=== PATIENT | male | born 1940 | race Caucasian/White ===

== ENCOUNTER 2023-08-28 11:29 | Observation (INO) | payer OTHER ==
[2023-08-28] MEDS ORDERED: NA CHLORIDE 0.9% 1,000 ML ONE (12:33)
[2023-08-28 12:47] LABS: Absolute Lymphocytes (CBC) 0.8 K/uL (0.7-4.9); Hematocrit 40.7 % (39.6-49.0); Lymphocytes % 8.7 % (15.3-44.8); MCV 88.7 fL (80-100); MPV 7.7 fL (7.6-11.3); Platelets 286 thou/uL (152-406); RBC Red Blood Cell Count 4.59 M/uL (4.33-5.43)
--- NOTE | 2023-08-28 12:50 | RAD REPORT ---
EXAM DESCRIPTION: [facility]28/2023 12:41 pm CLINICAL HISTORY: COUGH COMPARISON: Chest Pa And Lat (2 Views) dated 04/16/2022; CHEST PA AND LAT 2 VIEW dated 08/07/2015; CH EST PA AND LAT 2 VIEW dated 10/20/2012; CHEST PA AND LAT 2 VIEW dated 10/22/2010 TECHNIQUE: Portable AP view of the chest. FINDINGS: The lungs are clear apart from left costophrenic angle blunting which may relate to pleura l thickening or trace effusion. No pneumothorax or sizable effusion. The cardiomediastinal contours are unremarkable. IMPRESSION: Left costophrenic angle blunting as above. No other acute cardiopulmonary process.
[2023-08-28 13:04] LABS: Albumin 3.5 g/dL (3.4-5.0); Bilirubin Total 0.7 mg/dL (0.2-1.0); Potassium 4.3 mEq/L (3.5-5.1); Protein, Total 7.2 g/dL (6.4-8.2)
[2023-08-28 13:19] LABS: SARS-CoV-2 Antigen Rapid Res Negative (Negative)
[2023-08-28 13:42] LABS: Specific Gravity 1.028 (1.005-1.030); Urine Bacteria <20 /HPF (<20); Urine Bilirubin NEGATIVE (Negative); Urine Blood 1+ (Negative); Urine Clarity Turbid (Clear); Urine Color Yellow (Yellow); Urine Glucose NEGATIVE (Negative); Urine Mucus Slight /HPF (None Seen); Urine Protein 2+ (Negative); Urine Urobilinogen Normal (Normal); Urine pH 5.5 (5.0-7.0)
--- NOTE | 2023-08-28 13:57 | EDPHYS ---
Physician Documentation [facility] Name: Niraj Mccarthy Age: 82 yrs Sex: Male : 1940 Arrival Date: 08/28/2023 Time: 11:29 Bed 7 Private MD: Jorge Medeiros C ED Physician Da Luo HPI: 08/28 11:43 This 82 yrs old Male presents to ER via Wheelchair with complaints of Urinary ec2 Problem, Cough, confusion. 11:43 Patient arrives today for evaluation of generalized weakness as well as decrease in ec2 urinary frequency and occasional cough. Patient has been having urinary complaints approximately 1 week, has been having issues with initiating urination and feels like he is not completely voiding. Patient reports no fevers or chills, nausea or vomiting. Does report an occasional cough. Denies any difficulty breathing, denies any abdominal pain. Son is present with him who reports some increased confusion, states that he has been generally weaker and lives alone. No reported falls or injuries.. Historical: - Allergies: 11:35 No Known Allergies; ll1 - PMHx: 11:35 Hypertensive disorder; Hypercholesterolemia; ll1 - PSHx: 11:35 None; ll1 - Immunization history:: Adult Immunizations up to date. - Social history:: Smoking status: Patient denies any tobacco usage or history of. ROS: 11:44 Constitutional: as per hpi ec2 Exam: 11:44 Constitutional: GEN: NAD Head: atraumatic Eyes: EOMI Ears: External ears are ec2 normal. CV: regular rate LUNGS: no respiratory distress ABD: non-distended, soft, nontender, not guarding, not rigid SKIN: no evidence of rashes MSK: no evidence of trauma NEURO: moves all extremities equally Vital Signs: 11:39 BP 152 / 68; Pulse 81; Resp 18; Temp 98.4; Pulse Ox 94% ; Pain 0/10; ll1 12:41 BP 146 / 52; Pulse 66; Resp 16 S; Pulse Ox 99% on R/A; kc6 13:48 BP 154 / 67; Pulse 64; Resp 17 S; Pulse Ox 97% on R/A; kc6 15:30 BP 166 / 68; Pulse 61; Resp 16; Pulse Ox 96% on R/A; mb9 16:13 BP 163 / 62; Pulse 69; Resp 17 S; Pulse Ox 100% on R/A; kc6 11:39 Pain Scale: Adult ll1 MDM: 11:35 Patient medically screened. ec2 11:44 Data reviewed: vital signs. ED course: Patient arrives today due to concern for urinary ec2 problems along with cough and cold symptoms and generalized weakness. Examination remarkable for well-appearing nontoxic individual is otherwise in no acute distress. Will obtain lab work, urine studies, chest x-ray. Currently considering process such as urinary tract infection, dehydration, pneumonia, electrolyte disturbances, anemia.. 12:37 ED course: Patient with no urine present on bladder scan, will continue with giving the ec2 patient crystalloid and wait for urine specimen. Will defer catheterization given lack of urine on scan.. 12:50 ED course: CBC is reassuring.. ec2 13:13 ED course: Metabolic profile is reassuring.. ec2 13:51 ED course: Urine is noninfectious appearing with no leukoesterase or nitrites present. ec2 Negative flu and COVID testing. . 13:56 ED course: Given the patient's generalized weakness and reported confusion as well as ec2 his living status is living alone, I feel I would best to keep him in the hospital for further workup of his confusion and weakness. I discussed case with his primary care doctor Dr. Medeiros who agrees to except patient for admission.. 15:33 ED course: CT scan of the head shows hyperdense lesion near the distal right MCA, will ec2 benefit from MRI. Will admit to the hospital for further workup. Patient updated regarding plan of care. Discussed case with hospitalist, pending admission. . 08/28 11:43 Order name: CBC with Diff; Complete Time: 12:50 ec2 08/28 11:43 Order name: CMP; Complete Time: 13:13 ec2 08/28 11:43 Order name: UAM; Complete Time: 13:51 ec2 08/28 11:44 Order name: SARS RAPID; Complete Time: 13:51 ec2 08/28 11:44 Order name: Influenza Screen (a \T\ B); Complete Time: 13:51 ec2 08/28 11:43 Order name: CXR XRAY; Complete Time: 12:52 ec2 08/28 13:57 Order name: CT Head Brain wo Cont; Complete Time: 15:33 ec2 08/28 15:47 Order name: CONS Physician Consult EDMS 08/28 11:43 Order name: Bladder Scanner; Complete Time: 12:38 ec2 Administered Medications: 12:41 Drug: NS 0.9% IV 1000 ml IV at 1 bolus Per protocol; 1000 mL bolus Route: IV; Rate: 1 kc6 bolus; Site: right antecubital; 16:14 Follow up: Response: No adverse reaction; IV Status: Completed infusion; IV Intake: kc6 1000ml Disposition: 15:36 Chart complete. ec2 Disposition Summary: 08/28/23 15:34 Hospitalization Ordered Notes: Hospitalization Status: Inpatient Admission(08/28/23 15:34) ec2 Provider: Jorge Medeiros(08/28/23 15:34) ec2 Location: Telemetry/MedSurg (Inpatient)(08/28/23 15:34) ec2 Condition: Stable(08/28/23 15:34) ec2 Problem: an acute exacerbation(08/28/23 15:34) ec2 Symptoms: are unchanged(08/28/23 15:34) ec2 Bed/Room Type: Standard(08/28/23 15:34) ec2 Room Assignment: [facility](08/28/23 16:04) em1 Diagnosis - Altered mental status, unspecified(08/28/23 15:34) ec2 - Weakness(08/28/23 15:34) ec2 Forms: - Medication Reconciliation Form ec2 - SBAR form ec2 - Leadership Thank You Letter ec2 Signatures: Dispatcher [employer] Eran Zaman em1 Santo Díaz RN RN ll1 Yesenia Liriano RN RN kc6 Da Luo MD MD ec2 Corrections: (The following items were deleted from the chart) 11:44 11:43 Patient arrives today for evaluation of generalized weakness as well as decrease ec2 in urinary frequency and occasional cough.. ec2 14:00 13:57 Inpatient Admission ec2 ec2 14:00 13:57 Jorge Medeiros ec2 ec2 14:00 13:57 Telemetry/MedSurg (Inpatient) ec2 ec2 14:00 13:57 Stable ec2 ec2 14:00 13:57 an acute exacerbation ec2 ec2 14:00 13:57 are unchanged ec2 ec2 14:00 13:57 Standard ec2 ec2 14:00 13:57 ec2 ec2 14:00 13:57 Weakness ec2 ec2 14:00 13:57 Altered mental status, unspecified ec2 ec2 16:04 15:34 ec2 em1 16:12 15:33 ED course: CT scan of the head shows hyperdense lesion near the distal right MCA, ec2 will benefit from MRI. Will admit to the hospital for further workup. Discussed case with hospitalist, pending admission. . ec2
--- NOTE | 2023-08-28 13:57 | ER ---
Nurse's Notes [facility] Name: Niraj Mccarthy Age: 82 yrs Sex: Male : 1940 Arrival Date: 08/28/2023 Time: 11:29 Bed 7 Private MD: Jorge Medeiros C Diagnosis: Altered mental status, unspecified;Weakness Presentation: 08/28 11:36 Chief complaint: Patient states: Unable to pass urine for well since last week. Some ll1 confusion noted by son this week. Cough also, no known fever. Coronavirus screen: Vaccine status: Patient reports receiving the 2nd dose of the covid vaccine. Client denies travel out of the [place] in the last 14 days. cough unrelated to allergies, fatigue, Client presents with at least one sign or symptom that may indicate coronavirus-19. Standard/surgical mask placed on the client. Ebola Screen: Patient denies travel to an Ebola-affected area in the 21 days before illness onset. Initial Sepsis Screen: Does the patient meet any 2 criteria? No. Patient's initial sepsis screen is negative. Does the patient have a suspected source of infection? Yes: Productive cough/pneumonia. Risk Assessment: Do you want to hurt yourself or someone else? Patient reports no desire to harm self or others. Onset of symptoms was August 26, 2023. 11:36 Method Of Arrival: Wheelchair ll1 11:36 Acuity: VANDANA 3 ll1 Triage Assessment: 11:36 General: Appears uncomfortable, Behavior is calm, cooperative, appropriate for age. ll1 Pain: Denies pain. Neuro: Reports Son notices confusion. Respiratory: Reports cough that is. : Reports inability to void, urinary frequency. Historical: - Allergies: 11:35 No Known Allergies; ll1 - PMHx: 11:35 Hypertensive disorder; Hypercholesterolemia; ll1 - PSHx: 11:35 None; ll1 - Immunization history:: Adult Immunizations up to date. - Social history:: Smoking status: Patient denies any tobacco usage or history of. Screenin:39 [facility] ED Fall Risk Assessment (Adult) History of falling in the last 3 months, kc6 including since admission No falls in past 3 months (0 pts) Confusion or Disorientation No (0 pts) Intoxicated or Sedated No (0 pts) Impaired Gait Yes (1 pt) Mobility Assist Device Used Yes (1 pt) Altered Elimination No (0 pt) Score/Fall Risk Level 0 - 2 = Low Risk. Abuse screen: Denies threats or abuse. Denies injuries from another. Nutritional screening: No deficits noted. Tuberculosis screening: No symptoms or risk factors identified. Assessment: 12:39 General: Appears in no apparent distress. comfortable, Behavior is calm, cooperative, kc6 appropriate for age. Pain: Denies pain. Neuro: Level of Consciousness is awake, alert, obeys commands, Oriented to person, place, time, situation, Appropriate for age. Cardiovascular: Capillary refill < 3 seconds. Respiratory: Airway is patent Trachea midline Respiratory effort is even, unlabored, Respiratory pattern is regular, symmetrical. GI: No signs and/or symptoms were reported involving the gastrointestinal system. : Last void was August 28, 2023. pt appears to be soiled in brief and jeans upon assessment. pt states he is able to feed when he needs to void and will provide a sample. Dr. Luo notified Reports incontinence, inability to void. EENT: No signs and/or symptoms were reported regarding the EENT system. Derm: No signs and/or symptoms reported regarding the dermatologic system. Skin is intact, is healthy with good turgor, Skin is pink, warm \T\ dry. Musculoskeletal: No signs and/or symptoms reported regarding the musculoskeletal system. Circulation, motion, and sensation intact. Capillary refill < 3 seconds, Range of motion: intact in all extremities. 13:39 Reassessment: Patient appears in no apparent distress at this time. No changes from kc6 previously documented assessment. Patient and/or family updated on plan of care and expected duration. Pain level reassessed. Patient is alert, oriented x 3, equal unlabored respirations, skin warm/dry/pink. 14:39 Reassessment: Patient appears in no apparent distress at this time. No changes from kc6 previously documented assessment. Patient and/or family updated on plan of care and expected duration. Pain level reassessed. Patient is alert, oriented x 3, equal unlabored respirations, skin warm/dry/pink. 15:39 Reassessment: Patient appears in no apparent distress at this time. No changes from kc6 previously documented assessment. Patient and/or family updated on plan of care and expected duration. Pain level reassessed. Patient is alert, oriented x 3, equal unlabored respirations, skin warm/dry/pink. 16:13 Reassessment: attempted to call report to 2nd floor. nurse not assigned at this time. kc6 Vital Signs: 11:39 BP 152 / 68; Pulse 81; Resp 18; Temp 98.4; Pulse Ox 94% ; Pain 0/10; ll1 12:41 BP 146 / 52; Pulse 66; Resp 16 S; Pulse Ox 99% on R/A; kc6 13:48 BP 154 / 67; Pulse 64; Resp 17 S; Pulse Ox 97% on R/A; kc6 15:30 BP 166 / 68; Pulse 61; Resp 16; Pulse Ox 96% on R/A; mb9 16:13 BP 163 / 62; Pulse 69; Resp 17 S; Pulse Ox 100% on R/A; kc6 11:39 Pain Scale: Adult ll1 ED Course: 11:33 Patient arrived in ED. rg4 11:33 Jorge Medeiros MD is Private Physician. rg4 11:33 Da Luo MD is Attending Physician. ec2 11:38 Triage completed. ll1 11:38 Arm band placed on. ll1 12:13 Jannet Spears, RN is Primary Nurse. mb9 12:14 Yesenia Liriano, RN is Primary Nurse. kc6 12:38 Patient has correct armband on for positive identification. Bed in low position. Call kc6 light in reach. Side rails up X2. Adult w/ patient. Client placed on continuous cardiac and pulse oximetry monitoring. NIBP monitoring applied. 12:38 SARS RAPID Sent. kc6 12:38 Influenza Screen (a \T\ B) Sent. kc6 12:38 CMP Sent. kc6 12:38 CBC with Diff Sent. kc6 12:38 Bladder scan completed. 0 mL. Inserted saline lock: 20 gauge in right antecubital area, kc6 using aseptic technique. Blood collected. Patient maintains SpO2 saturation greater than 95% on room air. 12:42 CXR XRAY In Process Unspecified. EDMS 13:28 UAM Sent. kc6 13:56 Jorge Medeiros MD is Hospitalizing Provider. ec2 14:12 CT Head Brain wo Cont In Process Unspecified. EDMS 15:34 Jorge Medeiros MD is Hospitalizing Provider. ec2 Administered Medications: 12:41 Drug: NS 0.9% IV 1000 ml IV at 1 bolus Per protocol; 1000 mL bolus Route: IV; Rate: 1 kc6 bolus; Site: right antecubital; 16:14 Follow up: Response: No adverse reaction; IV Status: Completed infusion; IV Intake: kc6 1000ml Intake: 16:14 IV: 1000ml; Total: 1000ml. kc6 Outcome: 13:57 Decision to Hospitalize by Provider. ec2 15:34 Decision to Hospitalize by Provider. ec2 17:20 Patient left the ED. mb9 Signatures: Dispatcher [employer] Angela Staley4 Santo Díaz RN RN ll1 Yesenia Liriano RN RN kc6 Jannet Spears RN RN mb9 Da Luo MD MD ec2 Corrections: (The following items were deleted from the chart) 11:41 11:36 Chief complaint: Patient states: Unable to pass urine for a couple days. Some ll1 confusion noted. Cough also, no known fever ll1
--- NOTE | 2023-08-28 15:27 | RAD REPORT ---
EXAM DESCRIPTION: CT - Head Brain Wo Cont - 08/28/2023 2:11 pm CLINICAL HISTORY: CONFUSED COMPARISON: No comparisons TECHNIQUE: Noncontrast head CT images ad were obtained without IV contrast. Multiplanar reformats we re generated and reviewed. All CT scans are performed using dose optimization technique as appropriate and may include automated exposure control or mA/KV adjustment according to patient size. FINDINGS: No intracranial hemorrhage, mass, or edema. Midline structures are unremarkable. Moderate diffuse parenchymal volume loss, with somewhat disproportionate prominence of the ventricula r system relative to the sulci. Myrick-white matter differentiation is preserved, without evidence of acute infarct. No abnormal extra- axial fluid collections. Patchy periventricular and deep white matter hypoattenuation, nonspecific, but suggestive of chronic small vessel ischemic changes. Mastoid air cells and visualized portions of the paranasal sinuses are clear. No acute bony findings. IMPRESSION: Hyperdense vessel sign along the distal right MCA. The there is concern for acute ischem ia, additional evaluation by MRI would provide improved sensitivity. Diffuse parenchymal volume loss, with relatively disproportionate prominence of the ventricles relati ve to the sulci. Findings may relate to central predominant volume loss versus normal pressure hydroc ephalus. Please correlate clinically. Nonspecific deep white matter hypodensities, suggestive of chronic small vessel ischemic changes. The findings were communicated to Da Luo on 08/28/2023 at 15:23 hours.
[2023-08-28] MEDS ORDERED: ALBUTEROL 2.5 MG/3 ML NEB SOL NEB PRN (15:38)
[2023-08-28] MEDS ORDERED: ACETAMINOPHEN 325 MG TABLET PO PRN (15:38)
[2023-08-28] MEDS ORDERED: INFLUENZA VACCINE (for 6+ mo) 0.5 ML DOSE IMVAC ONE (18:00)
[2023-08-28 18:05] VITALS: BMI 23.6
[2023-08-28] MEDS ORDERED: AMLODIPINE 5 MG TAB PO ONE (18:55)
[2023-08-28] MEDS ORDERED: ATORVASTATIN 40 MG TAB PO SCH (21:00)
[2023-08-29 03:14] VITALS: O2SAT 94
--- NOTE | 2023-08-29 07:14 | HP ---
Date of Admission: 08/28/2023 Chief Complaint: Weakness. History Of Present Illness: This is an 82-year-old male patient, who lives at home by himself. Says that last night, he was in the bed and he felt like he was feeling a little thirsty and decided to get up to go to the kitchen to get some water, but as he was trying to get out of the bed, he felt very weak, and there was no focal weakness but just a generalized weakness, so he decided not to go to the kitchen, and he laid back down in the bed again and says that today, when his son came to check on him, he found out that the patient just did not look right, and the patient's son brought him to emergency room. The patient reports that sometime during day today, he decided that he was going to get out of the bed and he did that and reports that he was holding onto the moreno and he sat down in his recliner and that is where he was when his son came to his house. He denies any headache, nausea, vomiting, constipation, diarrhea. No fever. No chills. No head injury or fall. After patient was evaluated in the ER, he was admitted to the hospital. Allergies: NO KNOWN ALLERGIES. Medications: Aspirin 81 mg daily, atorvastatin 40 mg daily, fluticasone nasal spray one spray each nostril 2 times a day as needed, hydrochlorothiazide 12.5 mg daily, losartan 50 mg two times a day, tamsulosin 0.4 mg daily. Review of Systems: Constitutional: As mentioned above. All other systems reviewed and are negative. Past Medical History: Significant for hypertension; hyperlipidemia; allergic rhinitis; left-sided carotid artery stenosis, for which the patient has elected not to undergo any intervention; diverticulosis; benign prostatic hypertrophy; and history of leg edema. Past Surgical History: Significant for carotid artery stent placement. Family History: Father , had COPD, congestive heart failure, and enlarged prostate. Mother , details unknown. Social History: Negative for smoking and alcohol use. Physical Examination: Vital Signs: Height 69 inches, weight 160 pounds, temperature 98.4, pulse 81, respiratory rate 18, blood pressure 152/68, oxygen saturation 94% on room air. General: Awake, alert, oriented, not in distress. HEENT: Head atraumatic, normocephalic. Conjunctivae nonerythematous. Sclerae white. Mouth, no thrush or edema noted. Ears/Nose, no mass, lesion, discharge noted. Neck: Supple. No JVD, lymph nodes, bruit, thyromegaly noted. Lungs: Bilateral good equal air entry. Clear to auscultation. No rhonchi. No rales. Heart: Normal heart sounds, no murmur or gallop. Abdomen: Soft, bowel sounds normal. No guarding, rigidity, tenderness, mass, hepatosplenomegaly, distention, or bruit noted. Extremities: No leg edema. No calf tenderness. Skin: No rash, ulcer, cellulitis. Lymphatics: No lymph node enlargement in neck, supraclavicular, infraclavicular region. Neuro: No focal neurological deficit. Chest: Unremarkable. External Genitalia: Deferred. Rectal: Deferred. Labs: WBC 9.4, hemoglobin 13.7, platelets 286, sodium 138, potassium 4.3, chloride 105, bicarb 27, BUN 33, creatinine 1.15, glucose 108, liver function tests unremarkable, urinalysis unremarkable, COVID-19 test is negative. Imaging: Chest x-ray: Blunting of left costophrenic angle, no acute cardiopulmonary changes. CT scan of the head without contrast shows hyperdense vessel sign along the distal right MCA and there is concern for acute ischemia, diffuse parenchymal volume loss. Impression: 1. Cerebral atherosclerosis. 2. Rule out acute cerebral ischemia. 3. Hypertension. 4. Hyperlipidemia. 5. Carotid artery stenosis, left side. 6. Benign prostatic hypertrophy. 7. Osteoarthritis, multiple sites. 8. Allergic rhinitis. 9. Diverticulosis. Plan: We will go ahead and admit the patient to hospital for further evaluation and management of this problem. The patient is appropriate for inpatient and is expected to spend 2 midnights in the hospital. We will consult neurologist and tomorrow, we will plan to get an MRI done on brain. Anti-platelet therapy, aspirin will be given. We will give high-dose statin therapy. Amlodipine 5 mg p.o. x1 dose was ordered for elevated blood pressure. We will monitor blood pressure. Give antihypertensive medication as per order. Home blood pressure medications will be continued. Details of plan of treatment discussed with the patient. I will see him tomorrow morning for followup. RAO/JIGAR Voice ID: [id number] MTDD
[2023-08-29] MEDS ORDERED: TAMSULOSIN 0.4 MG SR CAP PO SCH (09:00)
[2023-08-29] MEDS ORDERED: hydroCHLOROthiazide 12.5 MG CAP PO SCH (09:00)
[2023-08-29] MEDS ORDERED: LOSARTAN POTASSIUM 50 MG TABLET PO SCH (09:00)
[2023-08-29] MEDS ORDERED: ASPIRIN 81 MG CHEWABLE TABLET PO SCH (09:00)
[2023-08-29 09:20] VITALS: TEMP 97.9
[2023-08-29] MEDS ORDERED: LORazepam 2 MG/ML VIAL IV ONE (10:20)
--- NOTE | 2023-08-29 12:11 | RAD REPORT ---
EXAM DESCRIPTION: MRI - MRA Head Wo Cont - 08/29/2023 11:47 am CLINICAL HISTORY: CVA COMPARISON: None. TECHNIQUE: Magnetic resonance angiogram was performed. 3D MIPS reconstruction performed FINDINGS: Mild plaque distal right internal carotid artery. Title A1 segment right anterior cerebral artery is hypoplastic. No significant stenosis anterior cerebral, middle cerebral, posterior cerebral or basilar arteries. No aneurysm. No large vessel occlusion IMPRESSION: No acute abnormality displayed
--- NOTE | 2023-08-29 12:11 | RAD REPORT ---
EXAM DESCRIPTION: MRI - MRA Neck W/Wo Cont - 08/29/2023 11:47 am CLINICAL HISTORY: CVA COMPARISON: None. TECHNIQUE: Magnetic resonance angiogram of the neck was performed. 17 cc MultiHance was administered intravenously. 3D MIPS reconstruction performed FINDINGS: Moderate plaque proximal right internal carotid artery. Mild plaque common carotid, left internal carotid and external carotid arteries. Vertebral arteries are codominant. No significant abnormality. No dissection seen IMPRESSION: Moderate plaque proximal right internal carotid resulting in approximately 50-69% stenos is NASCET criteria used. Mild 0-49% stenosis Moderate 50-69% stenosis Severe 70-99% stenosis
--- NOTE | 2023-08-29 12:12 | RAD REPORT ---
EXAM DESCRIPTION: MRI - Brain W/Wo Cont - 08/29/2023 11:47 am CLINICAL HISTORY: CVA COMPARISON: head CT August 28, 2023 TECHNIQUE: Axial, sagittal, and coronal magnetic images of the brain were obtained. 20 cc MultiHance administered intravenously FINDINGS: Moderate signal within periventricular, deep and subcortical white matter probably ischemi c changes secondary to small vessel disease Prominent cerebral atrophy. Old lacunar infarcts, thalami,right caudate and right basal ganglia The ventricles are normal in caliber. Diffusion-weighted/ ADC mapping sequences do not demonstrate evidence of an acute infarction. No abnormal enhancement within the brain is seen. An extra-axial fluid collection is not noted. Fluid within the sinuses/mastoids is not seen IMPRESSION: No acute intracranial abnormality displayed
[2023-08-29 17:09] VITALS: BP 159/64
[2023-08-29] MEDS ORDERED: INFLUENZA VACCINE (for 6+ mo) 0.5 ML DOSE IMVAC ONE (18:03)
--- NOTE | 2023-08-29 20:52 | CON ---
Reason For Consultation: Consultation was called by Dr. Medeiros because of altered mental status. History Of Present Illness: Mr. Mccarthy is an 82-year-old, right-handed, patient with a hi story of hypertension, dyslipidemia, prostate hypertrophy, and left carotid artery stenosis who was a t home and lives by himself, but does have a son who is there to care for him. Said he had noted roz e difficulty with urination, problems urinating for few days and would feel thirsty, but was generall y declining somewhat slowly over a few days. The night before his admission, which is yesterday on , he did feel more thirsty and tried to get some water, but was not quite able to make it and a pparently went back to bed. Patient's son did evaluate him at least determined that he did seem to b e himself and he determined that he should be brought in because he was not quite right. At [facility], he had a chest x-ray. It did show some mild blunting of the costophrenic angles on the left, however, no clear evidence of pneumonia or abnormalities there. Head CT scan did not show acut e ischemic hemorrhagic findings. Subsequent brain MRI showed prominent cerebral atrophy with old inf arcts in the thalami bilaterally in the right caudate and right basal ganglia with moderate small ves nahid ischemic disease. Magnetic resonance angiogram study of the neck showed moderate plaque in the r ight internal carotid with 50% to 69% stenosis, mild plaque in the common carotid and left internal c arotid arteries. MRA of his head showed no significant abnormalities in the anterior middle and post erior cerebral arteries and basilar arteries. His blood work suggested mild dehydration with BUN rambo vated at 33, creatinine of 1.15, which is still in normal limits for him. Glucose slightly elevated to 108. Alkaline phosphatase elevated to 125. His globulins slightly elevated at 3.7. Otherwise, s odium, potassium, chloride, carbon dioxide all normal. His AST and ALT are normal. Calcium normal a t 9.6. His urinalysis was turbid, trace ketones, 1+ blood, 5-10 red blood cells, 2+ protein and COVI D-19 testing was negative. The patient's son was at bedside said, once he received about an 1 L of f luid. He seemed to come back to his baseline, but still slightly confused. At the time I came to ev aluate the patient, he was actually in deep sleep. His son was at bedside, but eventually woke up an d communicated effectively. Past Medical History: As noted. Allergies: NO KNOWN DRUG ALLERGIES. Medications: Tylenol 650 every 4 hours as needed, albuterol nebulizer 2.5 mg 6 hours as needed, aspi rin 81 mg daily, Lipitor 40 mg at bedtime, hydrochlorothiazide 12.5 mg daily, Cozaar 50 mg daily, Juan max 0.4 mg daily. He did receive influenza A and B vaccines and had Norvasc at 1 point. Family History: Noncontributory. Social History: No alcohol, tobacco, or IV drug use. Review of Systems: The patient and the son denied recent fevers or chills. No significant myalgias or arthralgias. No rash, headache, weight change. No active psychiatric issues. Does have some mild cough with memory loss and cognitive impairment that predates this recent admission. Otherwise, no other positives on the systems review. Physical Examination: Vital Signs: Blood pressure range 166 systolic to 190 systolic over 65-79 diastolic, pulse 64-77, re spiratory rate 14-18, temperature 97.9, oxygen saturation 96% on room air and again temperature 97.9. General: Mr. Mccarthy is lying in bed and his son is at bedside. HEENT: He appears normocephalic, atraumatic. Sclerae anicteric. Oropharynx pink and moist. Neck: Supple. Chest: Clear. Heart: Regular. Extremities: Show no significant cyanosis or edema or clubbing. Neurological: He is alert, oriented to person, place, situation. He actually hospital, t he floor he is on, the months, the year, and day of the week. He followed simple commands without di fficulty. He had difficulty spelling the word world backwards. He got 1 correct. He was able to im mediately repeat 3 words. He could identify his own watch and glasses accurately. He was able to re peat a phrase appropriately. He had difficulty recalling 3 words after 3 minutes. Otherwise, simple commands can be followed appropriately. He missed a total of 7 on mini-mental status test giving hi m a /. In terms of the rest of his neurologic examination, his cranial nerves show no focal defi cits. Motor exam, he is symmetrically strong in the upper and lower extremities at least 4/5. No we akness noted. Stocking-glove loss to light touch temperature. Reflexes are symmetric. Coordination is intact in the upper and lower extremities. Assessment: Mr. Mccarthy is an 82-year-old patient with hypertension, prostate hypertrophy, dyslipide ignacio, carotid stenosis that does not require aggressive intervention and multiple chronic strokes poss ibly related to chronic hypertension and lacunar size and type strokes with small-vessel ischemic dis ease. His blood pressure and noted range of blood pressure are significant contributing factor to th e stroke. Patient likely has some mild cognitive impairment secondary to small vessel ischemic disea se or vascular dementia. The mild dehydration potentially aggravated his cognitive impairment. At t his point, hydration is stressed with the patient and his son and he continue antiplatelet regimen. He may benefit from some, if he is able to, outpatient physical, occupational, and speech therapy. M ay consider donepezil or memantine or the Exelon patch or galantamine to help with memory and potenti ally complete a full memory workup, which may include blood work and a routine electroencephalogram. Plan: 1.Aspirin, Plavix, folic acid, and statin. 2.Physical, occupational, and speech therapy. 3.Routine EEG once patient is discharged. 4.Consider blood work for Abeta 42/44 in the serum to determine if he may be a candidate for a CSF e valuation of a Abeta 42/44 and potentially a candidate to receive treatment with Leqembi if there is evidence of late onset Alzheimer disease. After his discharge, he may follow up with Dr. Robledo in clinic within the month. MARY/JIGAR Voice ID: [id number] Report ID: [id number]
--- NOTE | 2023-08-29 21:17 | DS ---
Date of Discharge: 08/29/2023 Disposition: Discharged to go home. Physical Examination: HEENT: Unremarkable. Lungs: Clear to auscultation. Heart: Sounds normal. Abdomen: Soft. Bowel sounds normal. No guarding, rigidity, tenderness, distention. Extremities: No leg edema. Discharge Medications And Instructions: 1.Continue all prior home medications. 2.Follow up at my office next week. Hospital Course: This is an 82-year-old pleasant male patient, who was admitted to the hospital afte r he came into emergency room with complaints of generalized weakness. Please see dictated H and P f or more information. After patient was evaluated in ER, he was admitted to the hospital. CAT scan o f the head was showing some abnormality in the cerebral artery and needed to rule out any evidence of thrombus as reported on the CAT scan. Today, we did MRI of brain with and without contrast, which d id not show any acute intracranial changes. No evidence of stroke. MRA of neck showed about 50% calvin nosis of right carotid artery and MRA of intracranial artery was negative. Patient was feeling fine today and was discharged to go home in stable condition with instruction to continue all prior home m edications. Final Diagnoses: 1.Cerebral atherosclerosis. 2.Right carotid artery stenosis. 3.Hypertension. 4.Hyperlipidemia. 5.Benign prostatic hypertrophy. 6.Generalized weakness. 7.Chronic use of aspirin. RAO/MODL Voice ID: [id number] Report ID: [id number]
== END 2023-08-29 18:20 | disposition home or self-care (01) ==
LOC: ER 11:29 → INTOOBSV 15:58 → ERHOLD 15:58 → 2ND 16:31
PROVIDERS: ADMIT Internal Medicine; ATTEND Internal Medicine
DX: I67.2 Cerebral atherosclerosis (principal); I65.21 Occlusion and stenosis of right carotid artery; I10 Essential (primary) hypertension; E78.5 Hyperlipidemia, unspecified; N40.0 Benign prostatic hyperplasia without lower urinary tract symptoms; M19.90 Unspecified osteoarthritis, unspecified site; J30.9 Allergic rhinitis, unspecified; K57.90 Diverticulosis of intestine, part unspecified, without perforation or abscess without bleeding; R41.82 Altered mental status, unspecified; Z79.82 Long term (current) use of aspirin; Z11.52 Encounter for screening for COVID-19; Z23 Encounter for immunization
CPT/HCPCS: 96361; 36569; 85025; 81001; 36415; 80053; 87804 ×2; 70450; 71045; 90471; 70553; 70544; 70549; 97116; 97161; 97530; 96360; 99285; 87811; A9577; Q2035; J7030; G0378